=== PATIENT | male | born 1980 | race Caucasian/White ===

== ENCOUNTER → 2024-03-12 | Outpatient (CLI) | payer BC ==
[~2024-03-12] MED LIST: AMLO5 PO; Acidophilus La100 GM PO; Augmentin 875-1 EACH PO; BACI500TO TOP; HYDACE5 PO; IBUP600 PO; IBUP800; LOSARTAN-HCTZ1 EAC1 PO; NAPR550 PO; OXYACE10 PO; Percocet 5-3251 EACH PO
[2024-03-12 14:31] LABS: Microalb/Creat Ratio UR, Rand 9.302 mg/g (0.000-30.000)
== END ==
LOC: LAB SHORT 12:40 → LAB 12:40
PROVIDERS: Family Medicine
DX: E11.22 Type 2 diabetes mellitus with diabetic chronic kidney disease (principal); E11.59 Type 2 diabetes mellitus with other circulatory complications; E11.69 Type 2 diabetes mellitus with other specified complication
CPT/HCPCS: 82043; 82570

== ENCOUNTER → 2025-02-28 | Outpatient (CLI) | payer BC ==
[~2025-02-28] MED LIST changes: +ATORVASTATIN CA20 MG PO; +CARVEDILOL25 M9 PO
[2025-02-28 22:40] LABS: Creatinine, Urine Random 363.0 mg/dL (27.00-270.00); Microalb/Creat Ratio UR, Rand 12.452 mg/g (0.000-30.000); Microalbumin, Random Urine 45.2 mg/L (0.000-20.000)
== END ==
LOC: LAB 13:30 → LAB SHORT 13:30
PROVIDERS: Family Medicine
DX: E11.22 Type 2 diabetes mellitus with diabetic chronic kidney disease (principal); E11.69 Type 2 diabetes mellitus with other specified complication; E11.59 Type 2 diabetes mellitus with other circulatory complications
CPT/HCPCS: 82043; 82570